=== PATIENT | male | born 1985 | race Hispanic/Latino ===

== ENCOUNTER 2016-12-27 12:16 | Emergency (ER) | payer BC ==
[2016-12-27 12:26] VITALS: TEMP 98.5
[2016-12-27] MEDS ORDERED: Sodium Chloride 0.9% 1,000 ML IV STA (12:42)
--- NOTE | 2016-12-27 12:45 | ED PDOC ---
Hyperglycemia/Hypoglycemia Time Seen by Provider: 12/27/16 12:31 Chief Complaint (Nursing): High Blood Sugar Chief Complaint (Provider): Hyperglycemia History Per: Patient : The patient does not have any of the infectious symptoms listed except for those marked. Additional Complaint(s): 31 yo male, PMH of MS and Chronic Pancreatitis, presents to ED with complaints of feeling weak, tired, nauseous and having abdominal pain for the last week. Pt saw his PMD today and was referred to E after FS glucose came back at 740 & 780 Past Medical History Reviewed: Nursing Documentation, Vital Signs Vital Signs: Last Vital Signs Temp 98.5 F 12/27/16 12:24 Pulse 78 12/27/16 12:24 Resp 20 12/27/16 12:24 BP 124/79 12/27/16 12:24 Pulse Ox 98 12/27/16 12:24 - Medical History Other PMH: pancreatitis - Family History Family History: States: Unknown Family Hx - Living Arrangements Living Arrangements: With Family - Social History Current smoker - smoking cessation education provided: No Alcohol: Social Drugs: Denies - Home Medications Home Medications: Ambulatory Orders Medication Instructions Recorded Ondansetron ODT [Zofran ODT] 4 mg PO Q6 PRN #10 odt 12/27/16 - Allergies Allergies/Adverse Reactions: Allergies Allergy/AdvReac Type Severity Reaction Status Date / Time gabapentin Allergy URTICARIA Verified 12/27/16 12:23 Review of Systems ROS Statement: Except As Marked, All Systems Reviewed And Found Negative Gastrointestinal: Positive for: Abdominal Pain Physical Exam - Reviewed Nursing Documentation Reviewed: Yes Vital Signs Reviewed: Yes - Physical Exam Appears: Positive for: Non-toxic, No Acute Distress, Uncomfortable Head Exam: Positive for: ATRAUMATIC, NORMAL INSPECTION, NORMOCEPHALIC Skin: Positive for: Normal Color, Warm, DRY Eye Exam: Positive for: EOMI, Normal appearance, PERRL ENT: Positive for: Normal ENT Inspection Neck: Positive for: Normal, Painless ROM Cardiovascular/Chest: Positive for: Regular Rate, Rhythm Respiratory: Positive for: CNT, Normal Breath Sounds Gastrointestinal/Abdominal: Positive for: Bowel Sounds, Soft, Tenderness ( epigastric) Back: Positive for: Normal Inspection Extremity: Positive for: Normal ROM Neurologic/Psych: Positive for: Alert, Oriented - Laboratory Results Result Diagrams: 12/27/16 13:00 12/27/16 13:00 - ECG O2 Sat by Pulse Oximetry: 98 Medical Decision Making Medical Decision Making: IV access established and treatment initiated with IVF, Morphine and Zofran Labs resulted and reviewed with pt who demonstrated full understanding. Reports pain is still 9/10 on re-eval, medicated with [address] Abd/Pel IMPRESSION: Hepatic steatosis. Pancreatic atrophy. Sub cm nonspecific mesenteric lymph node US IMPRESSION: Hepatic steatosis. Mild dilatation of the pancreatic duct. No gallstones or biliary dilatation Pt educated on all results and demonstrated full understanding. Reports feeling greatly improved. Stable for discharge at this time Disposition - Clinical Impression Clinical Impression: Abdominal pain, Nausea & vomiting - Patient ED Disposition Is Patient to be Admitted: No - Disposition Disposition: Routine/Home Disposition Time: 14:00 Condition: STABLE Prescriptions: Ondansetron ODT [Zofran ODT] 4 mg PO Q6 PRN #10 odt PRN Reason: Nausea/Vomiting Instructions: Acute Nausea and Vomiting (ED), Acute Abdominal Pain (ED) Forms: [employer] (Kenyan)
[2016-12-27 12:54] LABS: ABG ALLEN TEST YES; ARTERIAL BLOOD GAS HCO3 28.1 mmol/L (21-28); ARTERIAL BLOOD GAS PH 7.46 (7.35-7.45); ARTERIAL BLOOD GAS PO2 104 mm/Hg (80-100)
[2016-12-27 13:17] LABS: BASO % 0.6 % (0.0-2.0); EOS # 0.2 K/uL (0.0-0.7); EOS % 2.9 % (0.0-4.0); HEMATOCRIT 41.2 % (35.0-51.0); LYMPH # 2.1 K/uL (1.0-4.3); LYMPH % 37.8 % (20.0-40.0); MEAN CELL VOLUME 85.9 fl (80.0-94.0); MEAN CORPUSCULAR HEMOGLOBIN 30.1 pg (27.0-31.0); MEAN PLATELET VOLUME 8.1 fl (7.2-11.7); MONO # 0.5 K/uL (0.0-0.8); MONO % 8.4 % (0.0-10.0); NEUT # 2.8 K/uL (1.8-7.0); NEUT % 50.3 % (50.0-75.0); NRBC % 0.1 % (0.0-0.0); RED CELL DISTRIBUTION WIDTH 12.8 % (11.5-14.5); WHITE BLOOD COUNT 5.5 K/uL (4.8-10.8)
--- NOTE | 2016-12-27 13:21 | RAD ---
PROCEDURE: CHEST RADIOGRAPH, 1 VIEW HISTORY: abdominal pain COMPARISON: None available. FINDINGS: LUNGS: The lungs are well inflated and clear. PLEURA: No pneumothorax or pleural fluid seen. CARDIOVASCULAR: Normal. OSSEOUS STRUCTURES: No significant abnormalities. VISUALIZED UPPER ABDOMEN: Normal. OTHER FINDINGS: None. IMPRESSION: No active pulmonary disease.
[2016-12-27 13:22] LABS: RBC URINE 1 /hpf (0-3); URINE BILIRUBIN NEGATIVE (NEGATIVE); URINE BLOOD NEGATIVE (NEGATIVE); URINE COLOR STRAW (YELLOW); URINE GLUCOSE (UA) NEG (Normal); URINE KETONE NEGATIVE (NEGATIVE); URINE LEUKOCYTE ESTERASE NEG Leu/uL (Negative); URINE PROTEIN NEGATIVE (NEGATIVE); URINE UROBILINOGEN 0.2-1.0 mg/dL (0.2-1.0); WBC URINE < 1 /hpf (0-5)
[2016-12-27 13:38] LABS: BLOOD UREA NITROGEN 12 mg/dl (9-20); CARBON DIOXIDE 28 mmol/L (22-30); CHLORIDE 100 mmol/L (98-107); GFR AFRICAN-AMERICAN > 60; GLUCOSE,RANDOM 94 mg/dL (75-110); POTASSIUM 4.1 MMOL/L (3.6-5.0); SODIUM 139 mmol/l (132-148); TOTAL PROTEIN 8.1 G/DL (6.3-8.2)
[2016-12-27 13:39] LABS: ALB/GLOB RATIO 1.5 (1.0-2.1); ALKALINE PHOSPHATASE 42 U/L (38-126); ALT/SGPT 43 U/L (21-72); AMYLASE 72 U/L (30-110); AST/SGOT 36 U/L (17-59); BILIRUBIN,TOTAL 0.6 mg/dl (0.2-1.3); LIPASE 14 U/L (23-300)
--- NOTE | 2016-12-27 13:56 | US ---
HISTORY: chronic pancreatitis COMPARISON: None. TECHNIQUE: Grayscale imaging was performed. FINDINGS: LIVER: Measures 16.4 cm in length. There is mild diffuse increased echogenicity of the liver parenchyma. No mass. No intrahepatic bile duct dilatation. GALLBLADDER: No gallstones, wall thickening or pericholecystic fluid. The sonographic Wen's sign negative. COMMON BILE DUCT: Measures 4.7 mm. No stones. No dilatation. PANCREAS: The pancreas is normal in size with mild increased echotexture which may be related to fatty replacement. There is mild dilatation of the pancreatic duct. RIGHT KIDNEY: Measures 10 point cm in length. Normal echogenicity. No calculus, mass, or hydronephrosis. AORTA: No aneurysmal dilatation. IVC: Unremarkable. OTHER FINDINGS: None . IMPRESSION: Hepatic steatosis. Mild dilatation of the pancreatic duct. No gallstones or biliary dilatation
[2016-12-27] MEDS ORDERED: HYDROmorphone 0.5 mg/0.5 ml ISec IVP STA (14:01)
[2016-12-27] MEDS ORDERED: Iohexol 240 (50 ml) PO ONE (14:12)
[2016-12-27] MEDS ORDERED: Iohexol 240 (50 ml) ONE (14:31)
[2016-12-27] MEDS ORDERED: Iohexol 300 100 ML IJ ONE (16:40)
[2016-12-27] MEDS ORDERED: Sodium Chloride 0.9% 50 ML IV ONE (16:40)
--- NOTE | 2016-12-27 17:25 | CT ---
PROCEDURE: CT Abdomen and Pelvis with oral and IV contrast. HISTORY: chronic pancreatitis, severe pain COMPARISON: Right upper quadrant ultrasound performed 12/27/16 TECHNIQUE: Contiguous axial images of the abdomen and pelvis. Oral and IV contrast was administered. Coronal and Sagittal reformats generated and reviewed. Contrast dose: 95 cc Omnipaque 300 Radiation dose: Total exam DLP = 722.18 mGy-cm. This CT exam was performed using one or more of the following dose reduction techniques: Automated exposure control, adjustment of the mA and/or kV according to patient size, and/or use of iterative reconstruction technique. FINDINGS: LOWER THORAX: No visible consolidation, pleural effusion, or pneumothorax. LIVER: Hypoattenuation of the liver compatible with hepatic steatosis. GALLBLADDER AND BILE DUCTS: Unremarkable. PANCREAS: Fatty atrophy of the pancreas. SPLEEN: Unremarkable. ADRENALS: Unremarkable. KIDNEYS AND URETERS: The kidneys enhance symmetrically. No hydronephrosis or obstructing renal calculus. BLADDER: The urinary bladder appears unremarkable. REPRODUCTIVE: Unremarkable. APPENDIX: The appendix appears within normal limits of caliber. No secondary signs of acute appendicitis. BOWEL: The stomach is nondistended. The bowel loops appear within normal limits of caliber without evidence of intestinal obstruction. Moderate diffuse constipation. PERITONEUM: No significant free fluid. No definite free air. LYMPH NODES: Sub cm nonspecific mesenteric lymph nodes. VASCULATURE: No aortic aneurysm. BONES: No acute osseous abnormality is detected. OTHER FINDINGS: None. IMPRESSION: Hepatic steatosis. Pancreatic atrophy. Sub cm nonspecific mesenteric lymph nodes.
[2016-12-27 18:06] VITALS: BP 108/68; PULSE 82; RESP 18
--- NOTE | 2016-12-28 10:46 | CARD ---
APPROVED REPORT EKG Measurement Heart [id number] <Conclusion> Normal sinus rhythm Possible septal infarct, age undetermined Abnormal ECG
[2017-01-06 05:31] VITALS: O2SAT 98
== END 2016-12-27 18:06 | disposition home or self-care (01) ==
LOC: H.ER 12:16
DX: R11.2 Nausea with vomiting, unspecified (principal); R10.9 Unspecified abdominal pain
CPT/HCPCS: 36600; 71010; 74177; 76705; 80053; 81003; 82150; 82803; 82948; 83690; 85025; 93005; 96361; 96374; 96375; 96376; 99284; G0480; J1170; J2270; J2405; J7040; Q9966; Q9967

== ENCOUNTER 2018-03-20 16:44 | Inpatient (IN) | payer OTHER ==
[2018-03-20] MEDS ORDERED: Lactated Ringer's 1,000 ML IV ONE ×2 (17:30)
[2018-03-20 17:44] LABS: BASO # 0.1 K/uL (0.0-0.2); BASO % 0.5 % (0.0-2.0); EOS # 0.3 K/uL (0.0-0.7); EOS % 2.7 % (0.0-4.0); HEMOGLOBIN 14.4 g/dL (12.0-18.0); LYMPH # 2.1 K/uL (1.0-4.3); LYMPH % 20.5 % (20.0-40.0); MEAN CELL VOLUME 88.9 fl (80.0-94.0); MEAN CORPUSCULAR HEMOGLOBIN 29.8 pg (27.0-31.0); MEAN CORPUSCULAR HGB CONC 33.5 g/dL (33.0-37.0); MEAN PLATELET VOLUME 8.4 fl (7.2-11.7); MONO # 0.7 K/uL (0.0-0.8); MONO % 7.1 % (0.0-10.0); NEUT % 69.2 % (50.0-75.0); NRBC % 0.1 % (0.0-0.0); RBC 4.82 Mil/uL (4.40-5.90); RED CELL DISTRIBUTION WIDTH 12.7 % (11.5-14.5); WHITE BLOOD COUNT 10.1 K/uL (4.8-10.8)
[2018-03-20 18:00] LABS: ALB/GLOB RATIO 1.2 (1.0-2.1); ALBUMIN 4.7 g/dL (3.5-5.0); BLOOD UREA NITROGEN 9 mg/dl (9-20); CALCIUM 9.7 mg/dL (8.4-10.2); GFR NON-AFRICAN AMERICAN > 60; LIPASE 692 U/L (23-300)
[2018-03-20 18:03] LABS: ALT/SGPT 31 U/L (21-72); AST/SGOT 34 U/L (17-59); PROTHROMBIN TIME 11.8 Seconds (9.8-13.1)
[2018-03-20 18:05] LABS: PARTIAL THROMBOPLASTIN TIME 28.5 Seconds (25.6-37.1)
--- NOTE | 2018-03-20 18:45 | ED PDOC ---
HPI: Abdomen Time Seen by Provider: 03/20/18 17:10 Chief Complaint (Nursing): Abdominal Pain History Per: Patient Additional Complaint(s): Pt. states since Monday he's had epigastric abd pain radiating down both lower abd area and to his back. States he has a hx of pancreatitis. Last flare up was 1.5 years ago which occurred while he was in [place]. Further reports feeling nauseous but has had no vomiting. Last CT was in 12/2016. Denies chest pain, SOB, hemoptysis, fever, hemoptysis, hematemesis, melena, hematochezia, BRBPR, trauma. Past Medical History Reviewed: Historical Data, Nursing Documentation, Vital Signs Vital Signs: Last Vital Signs Temp 99 F 03/20/18 17:08 Pulse 62 03/20/18 17:08 Resp 18 03/20/18 17:08 BP 127/75 03/20/18 17:08 Pulse Ox 99 03/20/18 17:08 - Medical History PMH: Pancreatitis Denies: Chronic Kidney Disease - Surgical History Surgical History: Endoscopy - Family History Family History: States: No Known Family Hx - Immunization History Hx Tetanus Toxoid Vaccination: No Hx Influenza Vaccination: No Hx Pneumococcal Vaccination: No - Home Medications Home Medications: Ambulatory Orders Medication Instructions Recorded Ondansetron ODT [Zofran ODT] 4 mg PO Q6 PRN #10 odt 12/27/16 - Allergies Allergies/Adverse Reactions: Allergies Allergy/AdvReac Type Severity Reaction Status Date / Time gabapentin Allergy URTICARIA Verified 12/27/16 12:23 Review of Systems ROS Statement: Except As Marked, All Systems Reviewed And Found Negative Gastrointestinal: Positive for: Nausea, Abdominal Pain Physical Exam - Physical Exam Appears: Positive for: Well, Non-toxic, In Acute Distress (moderate painful distress) Skin: Positive for: Normal Color, Warm. Negative for: Rash, Jaundice Eye Exam: Positive for: Normal appearance. Negative for: Scleral icterus Cardiovascular/Chest: Positive for: Regular Rate, Rhythm. Negative for: Tachycardia Respiratory: Positive for: CNT, Normal Breath Sounds Gastrointestinal/Abdominal: Positive for: Normal Exam, Soft. Negative for: Tenderness, Guarding, Asicites Back: Positive for: Normal Inspection. Negative for: L CVA Tenderness, R CVA Tenderness Neurologic/Psych: Positive for: Alert, Oriented (x3) - Laboratory Results Result Diagrams: 03/20/18 17:30 03/20/18 17:30 - ECG O2 Sat by Pulse Oximetry: 99 - Progress ED Course And Treament: Labs, IV LR x 2, morphine 6mg IV, zofran 4mg IV ordered. Pt. kept NPO. Pt. reports no relief in pain. Dilaudid 1mg IV ordered. Case d/w Dr. Ulloa who recommends CT. Pt. informed of plan and agrees that CT is required. Disposition - Clinical Impression Clinical Impression: Abdominal pain - Patient ED Disposition Is Patient to be Admitted: Transfer of Care (Signed out to [facility] pending CT.) - Disposition Disposition Time: 20:00 Condition: FAIR Forms: [employer] (Burmese)
[2018-03-20] MEDS ORDERED: Iohexol 240 (50 ml) PO ONE (19:04)
[2018-03-20] MEDS ORDERED: Iohexol 240 (50 ml) ONE (20:03)
[2018-03-20] MEDS ORDERED: Sodium Chloride 0.9% 50 ML IV ONE (20:56)
[2018-03-20] MEDS ORDERED: Iohexol 300 100 ML IJ ONE (20:56)
--- NOTE | 2018-03-20 21:40 | ED PDOC ---
- Laboratory Results Result Diagrams: 03/20/18 17:30 03/20/18 17:30 - ECG O2 Sat by Pulse Oximetry: 96 - Progress ED Course And Treament: Case endorsed to repairer typewriter from [facility] pending CT abd/pelvis Date of service: 03/20/[address] Abdomen with intravenous contrast History Epigastric pain. History of pancreatitis. Comparison Comparison is made with a prior study dated 12/27/2016. Technique Axial images of the abdomen from lung bases to iliac crest with intravenous contrast enhancement. Coronal and sagittal reformats generated. Oral contrast also administered. Radiation dose: Total exam DLP = 600.70 mGy-cm. Intravenous contrast Dose: Omnipaque-[address] exam was performed using one or more of the following dose reduction techniques: Automated exposure control, adjustment of the mA and/or kV according to patient size, and/or use of iterative reconstruction technique. Findings Lower thorax Unremarkable. Liver Unremarkable. No gross lesion or ductal dilatation. Gallbladder and bile ducts Unremarkable. Pancreas The pancreatic tail is enlarged and edematous consistent with acute pancre atitis. There is adjacent peripancreatic stranding. The pancreatic head and body are atrophic with dilated pancreatic ducts measuring up to 5 mm consistent with chronic pancreatitis. Spleen The spleen is enlarged measuring 13.5 cm. Adrenals Unremarkable. No mass. Kidneys and ureters Unremarkable. No hydronephrosis. No solid mass. Vasculature Unremarkable. No aortic aneurysm. Bowel There is moderate amount of fecal material seen in the right colon compatible with constipation. No gross mural thickening. Small fat-containing umbilical hernia is seen. Appendix Normal appendix. Peritoneum Unremarkable. No free fluid. No free air. Lymph nodes Unremarkable. No enlarged lymph nodes. Bladder Unremarkable. Reproductive Prostate gland is unremarkable. Bones No acute fracture. Other Findings None. Impression Findings consistent with acute on chronic pancreatitis as discussed above. There is interval exacerbation. Chronic pancreatitis was seen on the prior examination. Splenomegaly. Constipation. Small fat-containing umbilical hernia Patient evaluated by Dr. Ulloa; will admit for IV hydration/pain control Case discussed with Dr. Barros, medical service on-call, for admission Disposition - Clinical Impression Clinical Impression: Abdominal pain, Pancreatitis - POA Present On Arrival: None - Disposition Disposition: Admitted as In-Patient Disposition Time: 23:30 Condition: FAIR
[2018-03-20] MEDS ORDERED: Lactated Ringer's 1,000 ML IV STA (23:22)
[2018-03-21] MEDS: Lactated Ringer's 1,000 ML IV SCH ×5 (06:38→22:35)
--- NOTE | 2018-03-21 08:42 | CP.PCM.HP ---
<Franky Carter - Last Filed: 03/21/18 15:22> History of Present Illness - History of Present Illness History of Present Illness: 32 y/o M with a PMHx of cystic fibrosis and ?chronic pancreatitis was admitted for evaluation and management of acute pancreatitis. Pt presented to ED with severe abdominal pain rdiating into his back and nausea. Pt reports having ~45 episodes of acute pancreatitis in his lifetime, last aepisode was 1.5 years ago in [place]. Pt was seen and examined by bedside with Dr Barros. Pt complains of severe abdominal pain that is not well-controlled with Hydromorphone 1mg. Pt afebrile, NPO with NO acute events overnight. PMHx: Cystic Fibrosis PSHx: denied FHx: unknown SHx: denied tobacco, alcohol or rec drugs. Present on Admission - Present on Admission Any Indicators Present on Admission: No Review of Systems - Constitutional Constitutional: absent: Anorexia, Chills, Fever - EENT Eyes: absent: Change in Vision Nose/Mouth/Throat: absent: Sore Throat, Facial Pain, Neck Mass - Cardiovascular Cardiovascular: absent: Chest Pain, Claudication, Pain Radiating to Arm/Neck/Jaw, Palpitations - Respiratory Respiratory: absent: Cough, Dyspnea, Hemoptysis, Pain on Inspiration - Gastrointestinal Gastrointestinal: Abdominal Pain, Nausea. absent: Belching, Bloating, Hematochezia, Vomiting - Genitourinary Genitourinary: absent: Dysuria, Hematuria, Urinary Incontinence - Musculoskeletal Musculoskeletal: absent: Neck Pain, Numbness, Stiffness Past Patient History - Past Social History Smoking Status: Never Smoked - CARDIAC Hx Cardiac Disorders: No - NEUROLOGICAL Hx Neurological Disorder: No - HEENT Hx HEENT Problems: No - RENAL Hx Chronic Kidney Disease: No - ENDOCRINE/METABOLIC Hx Endocrine Disorders: No - GASTROINTESTINAL Hx Pancreatitis: Yes - PSYCHIATRIC Hx Substance Use: No - ANESTHESIA Hx Anesthesia: No Hx Anesthesia Reactions: No Hx Malignant Hyperthermia: No Meds Allergies/Adverse Reactions: Allergies Allergy/AdvReac Type Severity Reaction Status Date / Time gabapentin Allergy URTICARIA Verified 12/27/16 12:23 Physical Exam - Constitutional Appears: No Acute Distress - Head Exam Head Exam: ATRAUMATIC, NORMAL INSPECTION - Eye Exam Eye Exam: EOMI - ENT Exam ENT Exam: Mucous Membranes Dry - Neck Exam Neck exam: Positive for: Full Rom, Thyromegaly. Negative for: Lymphadenopathy, Meningismus - Respiratory Exam Respiratory Exam: NORMAL BREATHING PATTERN. absent: Rales, Rhonchi, Wheezes - Cardiovascular Exam Cardiovascular Exam: +S1, +S2 - GI/Abdominal Exam GI & Abdominal Exam: Tenderness (epigastric and jim-umbilical). absent: Distended - Extremities Exam Extremities exam: Positive for: normal inspection. Negative for: calf tenderness, full ROM, pedal edema - Neurological Exam Neurological exam: Alert, Oriented x3 Results - Vital Signs Recent Vital Signs: Last Vital Signs Temp 98.0 F 03/21/18 05:10 Pulse 55 L 03/21/18 05:10 Resp 18 03/21/18 05:10 BP 125/76 03/21/18 05:10 Pulse Ox 98 03/21/18 05:10 - Labs Result Diagrams: 03/20/18 17:30 03/20/18 17:30 Labs: Laboratory Results - last 24 hr 03/20/18 03/20/18 03/20/18 17:30 17:30 17:30 WBC 10.1 D RBC 4.82 Hgb 14.4 Hct 42.8 MCV 88.9 D MCH 29.8 MCHC 33.5 RDW 12.7 Plt Count 219 MPV 8.4 Neut % (Auto) 69.2 Lymph % (Auto) 20.5 [place] % (Auto) 7.1 Eos % (Auto) 2.7 Baso % (Auto) 0.5 Neut # (Auto) 7.0 Lymph # (Auto) 2.1 [place] # (Auto) 0.7 Eos # (Auto) 0.3 Baso # (Auto) 0.1 PT 11.8 INR 1.0 APTT 28.5 Sodium 139 Potassium 4.4 Chloride 104 Carbon Dioxide 26 Anion Gap 13 BUN 9 Creatinine 0.9 Est GFR ( Amer) > 60 Est GFR (Non-Af Amer) > 60 Random Glucose 121 H Calcium 9.7 Total Bilirubin 1.0 AST 34 ALT 31 Alkaline Phosphatase 49 Total Protein 8.7 H Albumin 4.7 Globulin 4.0 H Albumin/Globulin Ratio 1.2 Lipase 692 H Alcohol, Quantitative < 10 Assessment & Plan - Assessment and Plan (Free Text) Assessment: 32 y/o M with a PMHx of cystic fibrosis and ?chronic pancreatitis was admitted for evaluation and management of acute pancreatitis. PLAN: --NPO, still c/o pain despite hydromorphone. --IV fluids --Anesthesia consult for pain management --GI consult, Dr Servin. --Continue management as ordered. Case discussed with DR Barros. Lucien PGY-2 - Date & Time Date: 03/21/18 Time: 09:10 <Km Barros - Last Filed: 03/22/18 19:55> Results - Vital Signs Recent Vital Signs: Last Vital Signs Temp 98.3 F 03/22/18 09:00 Pulse 56 L 03/22/18 09:00 Resp 19 03/22/18 09:00 BP 126/65 03/22/18 09:00 Pulse Ox 96 03/22/18 09:00 - Labs Result Diagrams: 03/22/18 06:15 03/22/18 06:15 Labs: Laboratory Results - last 24 hr 03/22/18 03/22/18 03/22/18 06:15 06:15 06:15 WBC 5.2 RBC 3.84 L Hgb 11.8 L D Hct 34.4 L MCV 89.5 MCH 30.7 MCHC 34.3 RDW 12.7 Plt Count 175 MPV 8.1 Neut % (Auto) 45.4 L Lymph % (Auto) 38.4 [place] % (Auto) 10.7 H Eos % (Auto) 5.0 H Baso % (Auto) 0.5 Neut # (Auto) 2.3 Lymph # (Auto) 2.0 [place] # (Auto) 0.6 Eos # (Auto) 0.3 Baso # (Auto) 0.0 Sodium 138 Potassium 3.9 Chloride 103 Carbon Dioxide 28 Anion Gap 11 BUN 6 L Creatinine 0.9 Est GFR ( Amer) > 60 Est GFR (Non-Af Amer) > 60 Random Glucose 88 Hemoglobin A1c 5.8 Calcium 9.1 Total Bilirubin 0.9 AST 19 ALT 30 Alkaline Phosphatase 39 Total Protein 6.9 Albumin 3.7 Globulin 3.2 Albumin/Globulin Ratio 1.2 Triglycerides 100 Cholesterol 148 LDL Cholesterol Direct 99 HDL Cholesterol 31 Lipase 514 H Assessment & Plan - Assessment and Plan (Free Text) Assessment: Patient was personally seen and examined by me in rounds with residents. Available labs and diagnostic data reviewed. Case, Patient's condition and management plan discussed with residents in rounds. Agree with resident's progress note. Plan: As ordered.
--- NOTE | 2018-03-21 09:22 | CT ---
Date of service: 03/20/2018 PROCEDURE: CT Abdomen and Pelvis with contrast HISTORY: epigastric pain, hx of pancreatitis COMPARISON: 12/27/2016 TECHNIQUE: Contrast dose: 95 mL Omnipaque 300 Radiation dose: Total exam DLP = 600.7 mGy-cm. This CT exam was performed using one or more of the following dose reduction techniques: Automated exposure control, adjustment of the mA and/or kV according to patient size, and/or use of iterative reconstruction technique. FINDINGS: LOWER THORAX: Bilateral subpleural subsegmental dependent atelectatic changes. LIVER: Mild diffuse fatty infiltration of the liver suggested. The faint small hypodensities in the liver appear to track as vessel seen on end. These are seen in different degrees of enhancement. GALLBLADDER AND BILE DUCTS: Unremarkable. PANCREAS: Multiple coalescent hypodensities cystic appearing in the pancreatic body and tail are present. The tail is more amorphous slightly enlarged since the prior exam. The pancreatitis here is 1 consideration. Continued follow-up is advised. The pancreatic coalescent cystic foci may represent both benign and potentially malignant the type cystic formations. Follow-up is advised. There is interval peripancreatic fat edematous inflammatory like infiltration suggested. SPLEEN: Spleen appears somewhat prominent at about 14 cm. No splenic lesions noted. ADRENALS: Unremarkable. No mass. KIDNEYS AND URETERS: Unremarkable. No hydronephrosis. No solid mass. VASCULATURE: The splenic perihilar vessels appear prominent. Possibility of splenic varices needed be considered.. No gross portal vein filling defects appreciated given their mild enhancement noted. No aortic aneurysm. No aortic atherosclerotic calcification or mural plaque present. BOWEL: Moderate stool retention.. No obstruction. No gross mural thickening. APPENDIX: The appendix is not identified with certainty. No pericecal inflammatory changes noted. PERITONEUM: Unremarkable. No free fluid. No free air. LYMPH NODES: Unremarkable. No enlarged lymph nodes. BLADDER: Unremarkable. REPRODUCTIVE: Unremarkable. BONES: No acute fracture. OTHER FINDINGS: None. IMPRESSION: Interval bulbous enlargement/swelling of the pancreatic tail peripancreatic inflammatory changes here noted. Findings are compatible with a focal pancreatitis here. Additional nonspecific small cystic lesions coalescing at the body tail junction-small pseudocysts are 1 consideration. Some of these have a blending appearance which may represent beaded cystic pancreatic ductal dilatation as well. Other type s of cystic pathology-benign and malignant-however, are not excluded. Their conspicuity is increased on the current study. Follow-up is recommended. Pancreatic head and body appear mildly fatty atrophic especially given patient's age this was previously noted. Mild hepatic steatosis. Borderline splenomegaly. Mild prominent perisplenic hilar vessels varices/portal hypertension is a consideration. Correlate clinically The findings of focal pancreatitis are concordant with the preliminary [place] rad report. Additional findings/considerations are as mentioned above
[2018-03-21 10:54] LABS: URINE BILIRUBIN NEGATIVE (NEGATIVE); URINE BLOOD NEGATIVE (NEGATIVE); URINE CLARITY CLEAR (Clear); URINE COLOR YELLOW (YELLOW); URINE GLUCOSE (UA) NEG (Normal); URINE LEUKOCYTE ESTERASE NEG Leu/uL (Negative); URINE PROTEIN NEGATIVE (NEGATIVE); URINE UROBILINOGEN 0.2-1.0 mg/dL (0.2-1.0)
--- NOTE | 2018-03-21 13:35 | CP.PCM.CON ---
History of Present Illness - History of Present Illness History of Present Illness: CONSULT NOTE FOR DR. VELASQUEZ 32M presents with abdominal pain. Patient states this pain started on monday. He has had this in the past multiple times. Patient has a hx of cystic fibrosis and has been diagnosed with pancreatitis and pancreatic cysts in the past. He [place] GI doctor [place] for his chronic pancreatitis and also had an outpatient doctor for pain control. he states today his pain continues and is not improving. He had been NPO and does not feel like he can eat . Pain is LUQ but also diffuse in nature. PMH: cystic fibrosis PSH: pancreatic stent Allergies: Gabapentin Past Patient History - Past Social History Smoking Status: Former Smoker - CARDIAC Hx Cardiac Disorders: No - NEUROLOGICAL Hx Neurological Disorder: No - HEENT Hx HEENT Problems: No - RENAL Hx Chronic Kidney Disease: No - ENDOCRINE/METABOLIC Hx Endocrine Disorders: No - MUSCULOSKELETAL/RHEUMATOLOGICAL Hx Falls: No - GASTROINTESTINAL Hx Pancreatitis: Yes - PSYCHIATRIC Hx Substance Use: No - ANESTHESIA Hx Anesthesia: No Hx Anesthesia Reactions: No Hx Malignant Hyperthermia: No Meds Allergies/Adverse Reactions: Allergies Allergy/AdvReac Type Severity Reaction Status Date / Time gabapentin Allergy URTICARIA Verified 12/27/16 12:23 - Medications Medications: Current Medications Hydromorphone HCl (Dilaudid) 2 mg IVP Q4 PRN PRN Reason: Pain, severe (8-10) Last Admin: 03/21/18 13:06 Dose: 2 mg Lactated Ringer's (Lactated Ringer's) 1,000 mls @ 250 mls/hr IV .Q4H TIMOTHY Last Admin: 03/21/18 11:34 Dose: 250 mls/hr Physical Exam - Constitutional Appears: Non-toxic, No Acute Distress - Eye Exam Eye Exam: EOMI, PERRL - ENT Exam ENT Exam: Mucous Membranes Moist - Respiratory Exam Respiratory Exam: Clear to Auscultation Bilateral, NORMAL BREATHING PATTERN - Cardiovascular Exam Cardiovascular Exam: REGULAR RHYTHM, +S1, +S2 - GI/Abdominal Exam GI & Abdominal Exam: Soft, Tenderness. absent: Distended, Firm, Guarding, Rebound, Rigid - Extremities Exam Extremities exam: Negative for: pedal edema, tenderness - Neurological Exam Neurological exam: Alert, Oriented x3 - Psychiatric Exam Psychiatric exam: Normal Affect - Skin Skin Exam: Dry, Intact, Normal Color, Warm Results - Vital Signs Recent Vital Signs: Last Vital Signs Temp 98.0 F 03/21/18 05:10 Pulse 56 L 03/21/18 10:54 Resp 18 03/21/18 10:54 BP 120/81 03/21/18 10:54 Pulse Ox 98 03/21/18 10:54 - Labs Result Diagrams: 03/20/18 17:30 03/20/18 17:30 Labs: Laboratory Results - last 24 hr 03/20/18 03/20/18 03/20/18 17:30 17:30 17:30 WBC 10.1 D RBC 4.82 Hgb 14.4 Hct 42.8 MCV 88.9 D MCH 29.8 MCHC 33.5 RDW 12.7 Plt Count 219 MPV 8.4 Neut % (Auto) 69.2 Lymph % (Auto) 20.5 [place] % (Auto) 7.1 Eos % (Auto) 2.7 Baso % (Auto) 0.5 Neut # (Auto) 7.0 Lymph # (Auto) 2.1 [place] # (Auto) 0.7 Eos # (Auto) 0.3 Baso # (Auto) 0.1 PT 11.8 INR 1.0 APTT 28.5 Sodium 139 Potassium 4.4 Chloride 104 Carbon Dioxide 26 Anion Gap 13 BUN 9 Creatinine 0.9 Est GFR ( Amer) > 60 Est GFR (Non-Af Amer) > 60 Random Glucose 121 H Calcium 9.7 Total Bilirubin 1.0 AST 34 ALT 31 Alkaline Phosphatase 49 Total Protein 8.7 H Albumin 4.7 Globulin 4.0 H Albumin/Globulin Ratio 1.2 Lipase 692 H Urine Color Urine Clarity Urine pH Ur Specific [place] Urine Protein Urine Glucose (UA) Urine Ketones Urine Blood Urine Nitrate Urine Bilirubin Urine Urobilinogen Ur Leukocyte Esterase Urine RBC (Auto) Urine Microscopic WBC Alcohol, Quantitative < 10 03/21/18 10:40 WBC RBC Hgb Hct MCV MCH MCHC RDW Plt Count MPV Neut % (Auto) Lymph % (Auto) [place] % (Auto) Eos % (Auto) Baso % (Auto) Neut # (Auto) Lymph # (Auto) [place] # (Auto) Eos # (Auto) Baso # (Auto) PT INR APTT Sodium Potassium Chloride Carbon Dioxide Anion Gap BUN Creatinine Est GFR ( Amer) Est GFR (Non-Af Amer) Random Glucose Calcium Total Bilirubin AST ALT Alkaline Phosphatase Total Protein Albumin Globulin Albumin/Globulin Ratio Lipase Urine Color Yellow Urine Clarity Clear Urine pH 7.0 Ur Specific [place] 1.016 Urine Protein Negative Urine Glucose (UA) Neg Urine Ketones Negative Urine Blood Negative Urine Nitrate Negative Urine Bilirubin Negative Urine Urobilinogen 0.2-1.0 Ur Leukocyte Esterase Neg Urine RBC (Auto) < 1 Urine Microscopic WBC < 1 Alcohol, Quantitative Assessment & Plan - Assessment and Plan (Free Text) Assessment: 32M with chronis pancreatitis. elevated Lipase and CT findings confirm diagnosis Plan: - NPO - IVF@250 - Pain control - Monitor BUN - patient has outpatient GI doctor Further recs discuss with Dr. Velasquez
--- NOTE | 2018-03-21 13:48 | CP.PCM.CON ---
History of Present Illness - History of Present Illness History of Present Illness: Patient w/ CF, chronic pancreatitis, chronic pain is referred for pain management. Patient states that he is having a pancreatitis flare, which he usually gets about once a year, during the winter mostly. He has been under the management of a chronic pain physician at [facility], and currently is on Suboxone. He states that during hospitalization, which usually lasts 3-4 days, he would require Dilaudid IV and Toradol IV. At this point, he's not interested in getting a celiac plexus block. Past Patient History - Past Social History Smoking Status: Former Smoker - CARDIAC Hx Cardiac Disorders: No - NEUROLOGICAL Hx Neurological Disorder: No - HEENT Hx HEENT Problems: No - RENAL Hx Chronic Kidney Disease: No - ENDOCRINE/METABOLIC Hx Endocrine Disorders: No - MUSCULOSKELETAL/RHEUMATOLOGICAL Hx Falls: No - GASTROINTESTINAL Hx Pancreatitis: Yes - PSYCHIATRIC Hx Substance Use: No - ANESTHESIA Hx Anesthesia: No Hx Anesthesia Reactions: No Hx Malignant Hyperthermia: No Meds Allergies/Adverse Reactions: Allergies Allergy/AdvReac Type Severity Reaction Status Date / Time gabapentin Allergy URTICARIA Verified 12/27/16 12:23 - Medications Medications: Current Medications Lactated Ringer's (Lactated Ringer's) 1,000 mls @ 250 mls/hr IV .Q4H TIMOTHY Last Admin: 03/21/18 11:34 Dose: 250 mls/hr Ketorolac Tromethamine (Toradol) 30 mg IVP Q6 PRN PRN Reason: Pain, severe (8-10) Physical Exam - GI/Abdominal Exam GI & Abdominal Exam: Soft, Tenderness Results - Vital Signs Recent Vital Signs: Last Vital Signs Temp 98.0 F 03/21/18 05:10 Pulse 56 L 03/21/18 10:54 Resp 18 03/21/18 10:54 BP 120/81 03/21/18 10:54 Pulse Ox 98 03/21/18 10:54 - Labs Result Diagrams: 03/20/18 17:30 03/20/18 17:30 Labs: Laboratory Results - last 24 hr 03/20/18 03/20/18 03/20/18 17:30 17:30 17:30 WBC 10.1 D RBC 4.82 Hgb 14.4 Hct 42.8 MCV 88.9 D MCH 29.8 MCHC 33.5 RDW 12.7 Plt Count 219 MPV 8.4 Neut % (Auto) 69.2 Lymph % (Auto) 20.5 [place] % (Auto) 7.1 Eos % (Auto) 2.7 Baso % (Auto) 0.5 Neut # (Auto) 7.0 Lymph # (Auto) 2.1 [place] # (Auto) 0.7 Eos # (Auto) 0.3 Baso # (Auto) 0.1 PT 11.8 INR 1.0 APTT 28.5 Sodium 139 Potassium 4.4 Chloride 104 Carbon Dioxide 26 Anion Gap 13 BUN 9 Creatinine 0.9 Est GFR ( Amer) > 60 Est GFR (Non-Af Amer) > 60 Random Glucose 121 H Calcium 9.7 Total Bilirubin 1.0 AST 34 ALT 31 Alkaline Phosphatase 49 Total Protein 8.7 H Albumin 4.7 Globulin 4.0 H Albumin/Globulin Ratio 1.2 Lipase 692 H Urine Color Urine Clarity Urine pH Ur Specific [place] Urine Protein Urine Glucose (UA) Urine Ketones Urine Blood Urine Nitrate Urine Bilirubin Urine Urobilinogen Ur Leukocyte Esterase Urine RBC (Auto) Urine Microscopic WBC Alcohol, Quantitative < 10 03/21/18 10:40 WBC RBC Hgb Hct MCV MCH MCHC RDW Plt Count MPV Neut % (Auto) Lymph % (Auto) [place] % (Auto) Eos % (Auto) Baso % (Auto) Neut # (Auto) Lymph # (Auto) [place] # (Auto) Eos # (Auto) Baso # (Auto) PT INR APTT Sodium Potassium Chloride Carbon Dioxide Anion Gap BUN Creatinine Est GFR ( Amer) Est GFR (Non-Af Amer) Random Glucose Calcium Total Bilirubin AST ALT Alkaline Phosphatase Total Protein Albumin Globulin Albumin/Globulin Ratio Lipase Urine Color Yellow Urine Clarity Clear Urine pH 7.0 Ur Specific [place] 1.016 Urine Protein Negative Urine Glucose (UA) Neg Urine Ketones Negative Urine Blood Negative Urine Nitrate Negative Urine Bilirubin Negative Urine Urobilinogen 0.2-1.0 Ur Leukocyte Esterase Neg Urine RBC (Auto) < 1 Urine Microscopic WBC < 1 Alcohol, Quantitative Assessment & Plan - Assessment and Plan (Free Text) Assessment: 32 yo man w/ chronic pain, chronic pancreatitis. - start Dilaudid IV, change to 2mg q3h PRN - start Toradol IV, ordered by surgery - patient to follow up with own pain specialist upon discharge
[2018-03-21 19:07] VITALS: RESP 19
[2018-03-22] MEDS: Lactated Ringer's 1,000 ML IV SCH ×3 (02:44→10:39)
[2018-03-22 06:59] LABS: BASO % 0.5 % (0.0-2.0); EOS # 0.3 K/uL (0.0-0.7); HEMOGLOBIN 11.8 g/dL (12.0-18.0); LYMPH % 38.4 % (20.0-40.0); MEAN CELL VOLUME 89.5 fl (80.0-94.0); MEAN CORPUSCULAR HEMOGLOBIN 30.7 pg (27.0-31.0); MEAN CORPUSCULAR HGB CONC 34.3 g/dL (33.0-37.0); MEAN PLATELET VOLUME 8.1 fl (7.2-11.7); MONO # 0.6 K/uL (0.0-0.8); MONO % 10.7 % (0.0-10.0); NEUT # 2.3 K/uL (1.8-7.0); NEUT % 45.4 % (50.0-75.0); NRBC % 0.1 % (0.0-0.0); RBC 3.84 Mil/uL (4.40-5.90); RED CELL DISTRIBUTION WIDTH 12.7 % (11.5-14.5); WHITE BLOOD COUNT 5.2 K/uL (4.8-10.8)
[2018-03-22 07:06] LABS: ALB/GLOB RATIO 1.2 (1.0-2.1); ALBUMIN 3.7 g/dL (3.5-5.0); ALT/SGPT 30 U/L (21-72); AST/SGOT 19 U/L (17-59); BLOOD UREA NITROGEN 6 mg/dl (9-20); CALCIUM 9.1 mg/dL (8.4-10.2); GFR NON-AFRICAN AMERICAN > 60; HDL CHOLESTEROL 31 MG/DL (30-70)
[2018-03-22 07:09] LABS: LDL CHOLESTEROL 99 mg/dL (0-129)
[2018-03-22 08:09] VITALS: BP 126/65; PULSE 56; TEMP 98.3; O2SAT 96
--- NOTE | 2018-03-22 08:53 | CP.PCM.PN ---
<Franky Carter - Last Filed: 03/22/18 08:45> Subjective - Date & Time of Evaluation Date of Evaluation: 03/22/18 Time of Evaluation: 07:50 - Subjective Subjective: 32 y/o M seen and examined by bedside with Dr Barros. Pt reports feeling better, abdominal pain is well controlled with current management. Pt afebrile with NO acute events overnight. Objective - Vital Signs/Intake and Output Vital Signs (last 24 hours): Temp Pulse Resp BP Pulse Ox 98.3 F 56 L 19 126/65 96 03/22/18 08:09 03/22/18 08:09 03/22/18 08:09 03/22/18 08:09 03/22/18 08:09 - Medications Medications: Current Medications Hydromorphone HCl (Dilaudid) 2 mg IVP Q3 PRN PRN Reason: Pain, severe (8-10) Last Admin: 03/22/18 06:20 Dose: 2 mg Lactated Ringer's (Lactated Ringer's) 1,000 mls @ 250 mls/hr IV .Q4H TIMOTHY Last Admin: 03/22/18 07:00 Dose: Not Given Ketorolac Tromethamine (Toradol) 30 mg IVP Q6 PRN PRN Reason: Pain, severe (8-10) Last Admin: 03/22/18 08:36 Dose: 30 mg Ondansetron HCl (Zofran Inj) 4 mg IVP Q8 PRN PRN Reason: Nausea/Vomiting Last Admin: 03/22/18 03:03 Dose: 4 mg - Labs Labs: 03/22/18 06:15 03/22/18 06:15 PT 11.8 Seconds (9.8-13.1) 03/20/18 17:30 INR 1.0 03/20/18 17:30 APTT 28.5 Seconds (25.6-37.1) 03/20/18 17:30 - Constitutional Appears: No Acute Distress - Head Exam Head Exam: ATRAUMATIC, NORMAL INSPECTION - Eye Exam Eye Exam: EOMI, Normal appearance - ENT Exam ENT Exam: Mucous Membranes Moist - Neck Exam Neck Exam: Full ROM, Normal Inspection. absent: Lymphadenopathy, Meningismus, Thyromegaly (No thyromegaly, error in previous note. ) - Respiratory Exam Respiratory Exam: NORMAL BREATHING PATTERN. absent: Rales, Rhonchi, Wheezes - Cardiovascular Exam Cardiovascular Exam: REGULAR RHYTHM, +S1, +S2 - GI/Abdominal Exam GI & Abdominal Exam: Soft, Tenderness (mildly on jim-umbilical area and lower quadrants. ). absent: Distended, Firm, Guarding - Extremities Exam Extremities Exam: Full ROM, Normal Inspection. absent: Calf Tenderness Assessment and Plan - Assessment and Plan (Free Text) Assessment: 32 y/o M with a PMHx of cystic fibrosis and ?chronic pancreatitis was admitted for evaluation and management of acute pancreatitis. PLAN: --Afebrile, stable. Lipase decreasing. --IV fluids, --Advance diet as tolerated. --Hydromorphone 2mg Q3H as per anesthesia --Toradol Q6H PRN --Anesthesia on board for pain management --GI on board, Dr Servin. --Continue management as ordered. Case discussed with Dr Barros. Lucien PGY-2 <Km Barros - Last Filed: 03/22/18 19:52> Objective - Vital Signs/Intake and Output Vital Signs (last 24 hours): Temp Pulse Resp BP Pulse Ox 98.3 F 56 L 19 126/65 96 03/22/18 09:00 03/22/18 09:00 03/22/18 09:00 03/22/18 09:00 03/22/18 09:00 - Labs Labs: 03/22/18 06:15 03/22/18 06:15 PT 11.8 Seconds (9.8-13.1) 03/20/18 17:30 INR 1.0 03/20/18 17:30 APTT 28.5 Seconds (25.6-37.1) 03/20/18 17:30 Assessment and Plan - Assessment and Plan (Free Text) Assessment: Patient was personally seen and examined by me in rounds with residents. Available labs and diagnostic data reviewed. Case, Patient's condition and management plan discussed with residents in rounds. Agree with resident's progress note. Plan: As ordered.
[2018-03-22 08:56] LABS: LIPASE 514 U/L (23-300)
--- NOTE | 2018-03-22 14:50 | CP.PCM.PN ---
Subjective - Date & Time of Evaluation Date of Evaluation: 03/22/18 Time of Evaluation: 11:30 - Subjective Subjective: Feeling less pain . No n and V Objective - Vital Signs/Intake and Output Vital Signs (last 24 hours): Temp Pulse Resp BP Pulse Ox 98.3 F 56 L 19 126/65 96 03/22/18 08:09 03/22/18 08:09 03/22/18 08:09 03/22/18 08:09 03/22/18 08:09 - Medications Medications: Current Medications Hydromorphone HCl (Dilaudid) 2 mg IVP Q3 PRN PRN Reason: Pain, severe (8-10) Last Admin: 03/22/18 09:28 Dose: 2 mg Lactated Ringer's (Lactated Ringer's) 1,000 mls @ 250 mls/hr IV .Q4H TIMOTHY Last Admin: 03/22/18 07:00 Dose: Not Given Ketorolac Tromethamine (Toradol) 30 mg IVP Q6 PRN PRN Reason: Pain, severe (8-10) Last Admin: 03/22/18 08:36 Dose: 30 mg Ondansetron HCl (Zofran Inj) 4 mg IVP Q8 PRN PRN Reason: Nausea/Vomiting Last Admin: 03/22/18 03:03 Dose: 4 mg - Labs Labs: 03/22/18 06:15 03/22/18 06:15 PT 11.8 Seconds (9.8-13.1) 03/20/18 17:30 INR 1.0 03/20/18 17:30 APTT 28.5 Seconds (25.6-37.1) 03/20/18 17:30 - Head Exam Head Exam: ATRAUMATIC - Eye Exam Eye Exam: Normal appearance - ENT Exam ENT Exam: Normal Exam - Neck Exam Neck Exam: Normal Inspection - Respiratory Exam Respiratory Exam: NORMAL BREATHING PATTERN - Cardiovascular Exam Cardiovascular Exam: REGULAR RHYTHM - GI/Abdominal Exam GI & Abdominal Exam: Soft, Normal Bowel Sounds. absent: Tenderness Assessment and Plan (1) Pancreatitis Assessment & Plan: Relapsing pancreatitis due to CF. Improving. Diet advanced. To follow as outpatient with his private GI specialists at [facility]. Status: Acute
== END 2018-03-22 15:03 | disposition home or self-care (01) | DRG 439 ==
LOC: H.ER 16:44 → H.ERHOLD 23:27 → UNDODISIN 03-21 01:20 → H.MEDSURG1 03-21 11:01
PROVIDERS: ADMIT Internal Medicine; ATTEND Internal Medicine
DX: K85.90 Acute pancreatitis without necrosis or infection, unspecified (principal); E84.9 Cystic fibrosis, unspecified; K86.1 Other chronic pancreatitis; G89.29 Other chronic pain; Z87.891 Personal history of nicotine dependence

== ENCOUNTER 2018-06-16 20:46 | Emergency (ER) | payer OTHER ==
[2018-06-16 20:57] VITALS: TEMP 97.5; O2SAT 99
[2018-06-16 21:49] LABS: BASO # 0.1 K/uL (0.0-0.2); BASO % 0.9 % (0.0-2.0); EOS # 0.1 K/uL (0.0-0.7); EOS % 1.7 % (0.0-4.0); HEMOGLOBIN 13.5 g/dL (12.0-18.0); LYMPH # 2.5 K/uL (1.0-4.3); LYMPH % 40.3 % (20.0-40.0); MEAN CELL VOLUME 85.9 fl (80.0-94.0); MEAN CORPUSCULAR HEMOGLOBIN 29.8 pg (27.0-31.0); MEAN CORPUSCULAR HGB CONC 34.7 g/dL (33.0-37.0); MEAN PLATELET VOLUME 8.4 fl (7.2-11.7); MONO # 0.6 K/uL (0.0-0.8); MONO % 9.4 % (0.0-10.0); NEUT % 47.7 % (50.0-75.0); NRBC % 0.1 % (0.0-0.0); RBC 4.53 Mil/uL (4.40-5.90); RED CELL DISTRIBUTION WIDTH 12.9 % (11.5-14.5); WHITE BLOOD COUNT 6.2 K/uL (4.8-10.8)
[2018-06-16 21:59] LABS: ALB/GLOB RATIO 1.5 (1.0-2.1); ALBUMIN 4.6 g/dL (3.5-5.0); ALT/SGPT 37 U/L (21-72); AST/SGOT 27 U/L (17-59); BLOOD UREA NITROGEN 14 mg/dl (9-20); CALCIUM 9.7 mg/dL (8.4-10.2); GFR NON-AFRICAN AMERICAN > 60; LIPASE 10 U/L (23-300)
--- NOTE | 2018-06-16 22:20 | ED PDOC ---
HPI: Chest Pain Time Seen by Provider: 06/16/18 21:06 Chief Complaint (Nursing): Chest Pain Chief Complaint (Provider): Chest Pain History Per: Patient History/Exam Limitations: no limitations Onset/Duration Of Symptoms: Days (x6 months ) Additional Complaint(s): Salina Bailey is a 33 year old male with a past medical history of hypercholesterolemia, cystic fibrosis, and pancreatitis, who presents to the emergency department complaining of having intermittent mid sternal chest pain, onset x6 months ago. Chest pain is described as tightness and he reports that it is slightly relieved when he stretches his chest. He also states that he has a sharp numbing sensation in his left chest for the past x1 year. Patient states that these symptoms have gotten worse over the last week prompting ED visit today. H states he saw his PMD for these symptoms and had a CT Head x3 months ago and as per patient, it came back normal. Patient reports that he started taking medication for hypercholesterolemia last week after seeing his autopsy pathologist. He also had a Doppler US for both carotids, which was normal. Patient also reports that he was in [place] on Monday but already had the pain so he decided to come back today. He denies having any shortness of breath, hemoptysis, palpitations, leg pain, fever, cough, head injury, LOC or rash. PMD: No provider Past Medical History Reviewed: Historical Data, Nursing Documentation, Vital Signs Vital Signs: Last Vital Signs Temp 97.5 F L 06/16/18 20:51 Pulse Resp 18 06/16/18 20:51 BP 143/79 06/16/18 20:51 Pulse Ox 99 06/16/18 20:51 - Medical History PMH: Hypercholesterolemia, Pancreatitis Denies: HIV (denies), Chronic Kidney Disease Other PMH: Cystic fibrosis - Surgical History Surgical History: Endoscopy - Family History Family History: States: Hypertension (mother and father) Denies: [place], CAD - Social History Current smoker - smoking cessation education provided: No Drugs: Denies - Immunization History Hx Tetanus Toxoid Vaccination: No Hx Influenza Vaccination: No Hx Pneumococcal Vaccination: No - Home Medications Home Medications: Ambulatory Orders Medication Instructions Recorded Ivacaftor [Kalydeco] 150 mg PO BID 03/21/18 predniSONE [predniSONE Tab] 10 mg PO DAILY 03/21/18 - Allergies Allergies/Adverse Reactions: Allergies Allergy/AdvReac Type Severity Reaction Status Date / Time gabapentin Allergy URTICARIA Verified 12/27/16 12:23 Review of Systems ROS Statement: Except As Marked, All Systems Reviewed And Found Negative Constitutional: Negative for: Fever Cardiovascular: Positive for: Chest Pain. Negative for: Palpitations Respiratory: Negative for: Cough, Shortness of Breath, Hemoptysis Musculoskeletal: Negative for: Leg Pain Skin: Negative for: Rash Neurological: Negative for: Other (LOC) Physical Exam - Reviewed Nursing Documentation Reviewed: Yes Vital Signs Reviewed: Yes - Physical Exam Appears: Positive for: Non-toxic, No Acute Distress Head Exam: Positive for: ATRAUMATIC, NORMOCEPHALIC Skin: Positive for: Normal Color, Warm, Dry Eye Exam: Positive for: Normal appearance, EOMI, PERRL ENT: Positive for: Normal ENT Inspection Neck: Positive for: Normal, Painless ROM, Supple Cardiovascular/Chest: Positive for: Regular Rate, Rhythm. Negative for: Murmur Respiratory: Positive for: Normal Breath Sounds. Negative for: Respiratory Distress Gastrointestinal/Abdominal: Positive for: Normal Exam, Soft. Negative for: Tenderness Back: Positive for: Normal Inspection. Negative for: L CVA Tenderness, R CVA Tenderness, Vertebral Tenderness Extremity: Positive for: Normal ROM. Negative for: Pedal Edema, Calf Tenderness (bilaterally ), Deformity Neurologic/Psych: Positive for: Alert, Oriented. Negative for: Motor/Sensory Deficits - Laboratory Results Result Diagrams: 06/16/18 21:45 06/16/18 21:45 Lab Results: Troponin I < 0.0120 ng/mL (0.00-0.120) 06/16/18 21:45 Total Bilirubin 0.5 mg/dl (0.2-1.3) 06/16/18 21:45 AST 27 U/L (17-59) 06/16/18 21:45 ALT 37 U/L (21-72) 06/16/18 21:45 Alkaline Phosphatase 54 U/L (38-126) 06/16/18 21:45 Total Protein 7.7 G/DL (6.3-8.2) 06/16/18 21:45 Albumin 4.6 g/dL (3.5-5.0) 06/16/18 21:45 Globulin 3.1 gm/dL (2.2-3.9) 06/16/18 21:45 Albumin/Globulin Ratio 1.5 (1.0-2.1) 06/16/18 21:45 Lipase 10 U/L (23-300) L 06/16/18 21:45 - ECG ECG: Positive for: Interpreted By Me ECG Rhythm: Positive for: Sinus Bradycardia. Negative for: ST/T Changes Rate: 55 O2 Sat by Pulse Oximetry: 99 (RA) Pulse Ox Interpretation: Normal Medical Decision Making Medical Decision Making: Time: 2055 Impression: chest pain Plan: -- EKG Time: 2131 -- CMP -- CPK -- Urine drug screen -- Lipase -- Troponin I -- CBC with differential -- Chest xray -- Toradol 15 mg IVP -- monitoring coordinator -- IV insertion Time: 2240 -- Reglan 10 mg PO Upon reevaluation, patient reports pain is still present but has improved and is requesting medications for headache. He states that the headache is consistent with previous episodes that he has had in the past year. Patient advised to follow up with Dr. Duarte and autopsy pathologist. Instructed to return to the ED if symptoms worsen. Repeat EKG was unchanged from initial. Patient was informed on plan and agrees. All questions were answered. Scribe Attestation: Documented by Chava Dickson, acting as a scribe for Wily Menjivar Provider Scribe Attestation: All medical record entries made by the Scribe were at my direction and personally dictated by me. I have reviewed the chart and agree that the record accurately reflects my personal performance of the history, physical exam, medical decision making, and the department course for this patient. I have also personally directed, reviewed, and agree with the discharge instructions and disposition. Disposition - Clinical Impression Clinical Impression: Chest wall pain, Headache - Patient ED Disposition Is Patient to be Admitted: No - Disposition Referrals: Cholo Duarte MD [Medical Doctor] - Disposition: Routine/Home Disposition Time: 22:43 Condition: IMPROVED Additional Instructions: FOLLOW UP WITH YOUR DOCTOR FOR FURTHER EVALUATION RETURN TO ED IMMEDIATELY IF SYMPTOMS WORSEN SALINA LARRY, thank you for letting us take care of you today. Your provider was Isabela Cordero MD and you were treated for CHEST PAIN,ABD PAIN. The emergency medical care you received today was directed at your acute symptoms. If you were prescribed any medication, please fill it and take as directed. It may take several days for your symptoms to resolve. Return to the Emergency Department if your symptoms worsen, do not improve, or if you have any other problems. Please contact your doctor or call one of the physicians/clinics you have been referred to that are listed on the Patient Visit Information form that is included in your discharge packet. Bring any paperwork you were given at discharge with you along with any medications you are taking to your follow up visit. Our treatment cannot replace ongoing medical care by a primary care provider outside of the emergency department. Thank you for allowing the [facility] team to be part of your care today. If you had an X-Ray or CT scan: A Radiologist will review the ED reading if any change in treatment is needed we will contact you. If you had a blood, urine, or wound culture: It will take several days for the results, if any change in treatment is needed we will contact you. If you had an STI test: It will take 48 hours for the results. Please call after 1 week if you have not heard back. Instructions: Chest Pain That Is Not Caused by the Heart (DC), Headache, Adult (DC) Forms: [employer] ([place]) Print Language: BRUNEIAN
[2018-06-16 22:51] VITALS: BP 121/78; RESP 16
[2018-06-16 23:54] VITALS: PULSE 55
--- NOTE | 2018-06-17 10:28 | RAD ---
Date of service: 06/16/2018 HISTORY: chest pain COMPARISON: Chest radiograph dated 12/27/2016. TECHNIQUE: Chest PA and lateral FINDINGS: LUNGS: No active pulmonary disease. PLEURA: No significant pleural effusion identified. No pneumothorax apparent. CARDIOVASCULAR: No aortic atherosclerotic calcification present. Normal cardiac size. No pulmonary vascular congestion. OSSEOUS STRUCTURES: No significant abnormalities. VISUALIZED UPPER ABDOMEN: Normal. OTHER FINDINGS: None. IMPRESSION: No active disease.
--- NOTE | 2018-06-17 16:55 | CARD ---
APPROVED REPORT Date of service: 06/16/2018 EKG Measurement Heart [id number] <Conclusion> Sinus bradycardia Otherwise normal ECG
--- NOTE | 2018-06-17 16:57 | CARD ---
APPROVED REPORT Date of service: 06/16/2018 EKG Measurement Heart [id number] ID [id number] <Conclusion> Sinus bradycardia Otherwise normal ECG
== END 2018-06-16 23:10 | disposition home or self-care (01) ==
LOC: H.ER 20:46
DX: R07.89 Other chest pain (principal); R51 Headache; E78.00 Pure hypercholesterolemia, unspecified; E84.9 Cystic fibrosis, unspecified; K85.90 Acute pancreatitis without necrosis or infection, unspecified
CPT/HCPCS: 71046; 80053; 82550; 83690; 84484; 85025; 93005; 96374; 99285; J1885